=== PATIENT | female | born 2000 | race Caucasian/White ===

== ENCOUNTER 2019-12-16 21:17 | Emergency (ER) | payer BC ==
[~2019-12-16] VITALS: Ht 152.4 cm; Wt 65.9 kg
[2019-12-16] MEDS ORDERED: LINZESS72 MCG PO (21:26)
[2019-12-16 21:27] VITALS: BP 133/72; PULSE 100; TEMP 98.9
[2019-12-16] MEDS ORDERED: CRYSELLE 30 MCG1 TAB PO (21:27)
== END 2019-12-16 22:00 | disposition home or self-care (01) ==
LOC: COL.ER 21:17
DX: T16.2XXA Foreign body in left ear, initial encounter (principal)